=== PATIENT | female | born 1980 | race Caucasian/White ===

== ENCOUNTER 2019-10-29 13:33 | Emergency (ER) | payer SELFPAY ==
[~2019-10-29] VITALS: Ht 162.6 cm; Wt 65.8 kg
[2019-10-29 13:43] VITALS: Ht 162.6 cm; Wt 65.8 kg
[2019-10-29 14:53] LABS: BASOPHIL % 0.2 % (0-2); PLATELET COUNT 350 x10^3mcL (130-400)
[2019-10-29 15:05] LABS: CALCIUM 8.5 mg/dL (8.5-10.1); CARBON DIOXIDE 27.9 mmol/L (21-32); CHLORIDE SERUM 105 mmol/L (98-107); CREATININE SERUM 0.5 mg/dL (0.6-1.0); GFR1 > 60 mL/min; GLUCOSE SERUM 89 mg/dL (74-106); POTASSIUM SERUM 3.3 mmol/L (3.5-5.1); SODIUM SERUM 141 mmol/L (136-145)
[2019-10-29 15:09] LABS: ALBUMIN 3.5 g/dL (3.4-5.0); ALKALINE PHOSPHATASE 78 U/L (46-116); ALT/SGPT 25 U/L (14-59); AST/SGOT 11 U/L (15-37); BILIRUBIN TOTAL 0.42 mg/dL (0.20-1.00); TOTAL PROTEIN, SERUM 7.5 g/dL (6.4-8.2)
[2019-10-29 15:30] VITALS: BP 110/39
== END 2019-10-29 15:30 | disposition home or self-care (01) ==
LOC: ED 13:33
PROVIDERS: Emergency Medicine
DX: R07.89 Other chest pain (principal); R06.4 Hyperventilation
CPT/HCPCS: J7030; Q0092